=== PATIENT | female | born 2000 | race Caucasian/White ===

== ENCOUNTER 2020-07-12 20:34 | Emergency (ER) | payer OTHER, SELFPAY ==
[2020-07-12 20:43] VITALS: BP 135/77; PULSE 96; RESP 16; TEMP 37.4; O2SAT 100; BMI 31.9
[2020-07-12 23:32] LABS: Basophils Percent Auto 0.3 % (0-2); Eosinophils Absolute Auto 0.1 X10*3/uL (0.0-0.4); Eosinophils Percent Auto 1.1 % (0-4); Hematocrit 33.6 % (37-47); Hemoglobin 9.9 g/dl (12.0-16.0); Imm Gran Abs Auto 0.02 X10*3/uL (0.00-0.03); Imm Gran Pct Auto 0.2 % (0.0-0.4); Lymphocytes Absolute Auto 2.8 X10*3/uL (1.2-4.9); Lymphocytes Percent Auto 30.5 % (20-40); Mean Corpuscular HGB Conc 29.5 g/dl (31.0-35.0); Mean Corpuscular Hemoglobin 20.7 pg (27.0-33.0); Mean Corpuscular Volume 70.1 fL (80-98); Mean Platelet Volume 10.6 fL (9.4-12.3); Monocytes Absolute Auto 0.5 X10*3/uL (0.1-1.2); Monocytes Percent Auto 5.4 % (2-11); Neutrophils Absolute Auto 5.7 X10*3/uL (2.0-8.3); Neutrophils Percent Auto 62.5 % (45-73); Platelet Count 298 X10*3/uL (160-400); Red Blood Count 4.79 X10*6/uL (4.20-5.50); Red Cell Distribution Width 18.1 % (11.0-16.0); White Blood Count 9.1 X10*3/uL (4.8-10.8)
[2020-07-12 23:33] LABS: MANUAL DIFF FLAG NO
[2020-07-12 23:33] LABS: Glucose Urine UA NEG (NEG); Leukocyte Esterase Urine NEG (NEG); Nitrite Urine NEG (NEG); Specific Gravity - Urine >= 1.030 (1.005-1.025); Urine Blood NEG (NEG); Urine Ketones NEG (NEG); Urine Protein NEG (NEG-TRACE)
[2020-07-12 23:34] LABS: Appearance Urine CLEAR; Color Urine YELLOW
[2020-07-12 23:35] LABS: UPreg QC Valid YES; Urine Pregnancy POSITIVE (NEGATIVE)
[2020-07-13 00:05] LABS: Alanine Aminotransferase 30 U/L (0-31); Albumin Level 4.8 g/dL (3.5-5.0); Alkaline Phosphatase 64 U/L (39-117); Anion Gap 13 (12-20); Aspartate Amino Transferase 19 U/L (5-31); Bilirubin Total 0.4 mg/dL (0.0-1.0); Blood Urea Nitrogen 12 mg/dL (9-16); Calcium 9.6 mg/dL (8.4-10.2); Carbon Dioxide 21 mmol/L (22-29); Chloride 106 mmol/L (96-108); Estimated Glomerular Filt Rate > 60; Glucose Random 101 mg/dL (60-115); Potassium 3.7 mmol/l (3.3-5.1); Sodium 136 mmol/L (135-145); Total Protein 7.7 g/dL (6.5-8.0)
[2020-07-13 00:12] LABS: HCG Quantitative 784 mIU/mL
--- NOTE | 2020-07-13 00:23 | PC.NURSE ---
PT AWAITING ULTRASOUND. RESTING ON BED, SKIN PWD RESPIRATIONS EVEN UNLABORED. NO COMPLAINTS OFFERRED AT THIS TIME.
--- NOTE | 2020-07-13 00:26 | US_ITS ---
EXAMINATION: ULTRASOUND OB TRANSVAGINAL CLINICAL INFORMATION: Pelvic pain, reported quantitative beta hCG level 784 COMPARISON: None TECHNIQUE: Sonographic evaluation of the pelvis was performed transabdominally and transvaginally. FINDINGS: The uterus measures 9.1 cm in length and 6.0 x 6.6 cm in AP and transverse dimensions. No intrauterine gestational sac is seen at this time. There is trace fluid in the endometrial canal. The right ovary measures 5.0 x 3.2 x 3.1 cm. There are 2 complex appearing cystic structures in the right ovary measuring up to 2.0 cm and 2.2 cm in size. The left ovary measures 3.7 x 2.0 x 2.8 cm and appears unremarkable. Small amount of fluid is seen in the cul-de-sac and near the right adnexa. US/US OB <= 14 weeks fetus IMPRESSION: 1. No intrauterine is identified at this time, which could be due to an early stage of . Alternatively, lack of an intrauterine gestational sac may also be seen with missed or ectopic . Short-term sonographic follow-up and serial beta hCG levels are recommended to assess for development of a gestational sac. 2. Two complex-appearing structures in the right adnexa, which may reflect multiple corpus luteal cysts. 3. Small amount of free fluid in the cul-de-sac and near the right adnexa.
--- NOTE | 2020-07-13 00:26 | US_ITS ---
EXAMINATION: ULTRASOUND OB TRANSVAGINAL CLINICAL INFORMATION: Pelvic pain, reported quantitative beta hCG level 784 COMPARISON: None TECHNIQUE: Sonographic evaluation of the pelvis was performed transabdominally and transvaginally. FINDINGS: The uterus measures 9.1 cm in length and 6.0 x 6.6 cm in AP and transverse dimensions. No intrauterine gestational sac is seen at this time. There is trace fluid in the endometrial canal. The right ovary measures 5.0 x 3.2 x 3.1 cm. There are 2 complex appearing cystic structures in the right ovary measuring up to 2.0 cm and 2.2 cm in size. The left ovary measures 3.7 x 2.0 x 2.8 cm and appears unremarkable. Small amount of fluid is seen in the cul-de-sac and near the right adnexa. US/US OB transvaginal IMPRESSION: 1. No intrauterine is identified at this time, which could be due to an early stage of . Alternatively, lack of an intrauterine gestational sac may also be seen with missed or ectopic . Short-term sonographic follow-up and serial beta hCG levels are recommended to assess for development of a gestational sac. 2. Two complex-appearing structures in the right adnexa, which may reflect multiple corpus luteal cysts. 3. Small amount of free fluid in the cul-de-sac and near the right adnexa.
[2020-07-13 00:29] VITALS: BP 115/54; PULSE 80; RESP 14; TEMP 36.6; O2SAT 99
--- NOTE | 2020-07-13 00:38 | PC.NURSE ---
PT OFF FLOOR TO US.
--- NOTE | 2020-07-13 01:45 | PC.NURSE ---
RESULTS RECEIVED, PT AWAITING MD REEVAL .MD BRUNNER CONSULTING MD YA.
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
[2020-07-13 02:27] VITALS: BP 113/64; PULSE 74; RESP 16; TEMP 36.9; O2SAT 99
--- NOTE | 2020-07-13 02:29 | PC.NURSE ---
PT MOVED TO ROOM 14. AWAITING REPEAT CBC IN AM AND OB CONSULT. PT AWARE OF PLAN OF CARE. OFFERS NO COMPLAINTS AT THIS TIME. VSS.
[2020-07-13 04:00] VITALS: RESP 16
--- NOTE | 2020-07-13 04:17 | PC.NURSE ---
PT RESTING IN BED SKIN PWD RESPIRATIONS EVEN UNLABORED. NO DISTRESS NOTED, AWAITING CONSULT AND REPEAT LABS IN AM.
[2020-07-13 06:34] VITALS: BP 105/54; PULSE 86; RESP 16; O2SAT 100
[2020-07-13 07:10] LABS: Basophils Percent Auto 0.5 % (0-2); Eosinophils Absolute Auto 0.1 X10*3/uL (0.0-0.4); Eosinophils Percent Auto 0.9 % (0-4); Hematocrit 32.9 % (37-47); Hemoglobin 9.5 g/dl (12.0-16.0); Imm Gran Abs Auto 0.03 X10*3/uL (0.00-0.03); Imm Gran Pct Auto 0.4 % (0.0-0.4); Lymphocytes Absolute Auto 2.3 X10*3/uL (1.2-4.9); Lymphocytes Percent Auto 30.2 % (20-40); MANUAL DIFF FLAG NO; Mean Corpuscular HGB Conc 28.9 g/dl (31.0-35.0); Mean Corpuscular Hemoglobin 20.4 pg (27.0-33.0); Mean Corpuscular Volume 70.8 fL (80-98); Mean Platelet Volume 10.5 fL (9.4-12.3); Monocytes Absolute Auto 0.5 X10*3/uL (0.1-1.2); Monocytes Percent Auto 6.4 % (2-11); Neutrophils Absolute Auto 4.8 X10*3/uL (2.0-8.3); Neutrophils Percent Auto 61.6 % (45-73); Platelet Count 280 X10*3/uL (160-400); Red Blood Count 4.65 X10*6/uL (4.20-5.50); White Blood Count 7.7 X10*3/uL (4.8-10.8)
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
== END 2020-07-13 08:02 | disposition home or self-care (01) ==
PROVIDERS: Emergency Provider Emergency Medicine
DX: O26.891 Other specified pregnancy related conditions, first trimester (principal); N83.201 Unspecified ovarian cyst, right side
CPT/HCPCS: 36415; 76801; 76817; 80053; 81003; 81025; 84702; 85025; 86900; 86901; 99284

== ENCOUNTER 2020-07-15 13:12 | Outpatient (REF) | payer OTHER, SELFPAY ==
[2020-07-15 15:31] LABS: HCG Quantitative 2134 mIU/mL
== END 2020-07-15 13:13 | disposition home or self-care (01) ==
LOC: HO.LAB 13:12
PROVIDERS: Referring Provider Emergency Medicine; Visit Provider Emergency Medicine
DX: R10.9 Unspecified abdominal pain (principal)
CPT/HCPCS: 84702

== ENCOUNTER 2020-07-17 14:07 | Outpatient (REF) | payer OTHER, SELFPAY ==
--- NOTE | 2020-07-17 14:19 | US_ITS ---
EXAMINATION: PELVIC ULTRASOUND CLINICAL INFORMATION: Threatened COMPARISON: Previous exam 07/13/2020 TECHNIQUE: Transabdominal and transvaginal first trimester OB ultrasound. Transvaginal exam was performed for better visualization of the gestational sac and ovaries. FINDINGS: The uterus measures 11.3 x 5.2 x 6.4 cm in dimension. There is a new intrauterine gestational sac and yolk sac. Mean sac diameter measures 0.8 suggesting gestational age of 5 weeks 3 days. No pole is seen. There is a small hypoechoic area adjacent to the gestational sac questionable for subchorionic hemorrhage. This measures 1 x 1.4 x 0.2 cm. The cervix is normal. The right maternal ovary measures 4.4 x 3.3 x 2.4 cm. There are too thick walled complex cysts measuring 1.8 x 1.5 x 1.5 cm and 2.3 x 1.6 x 1.8 cm that are similar to previous exam. The left ovary is normal-appearing and measures 3.3 x 1.8 x 2.3 cm. There is a small amount of fluid in the pelvis. US/US OB <= 14 weeks fetus IMPRESSION: New intrauterine gestational sac and yolk sac. No pole seen. This may be due to early gestational age. Mean sac diameter suggests gestational age of 5 weeks 3 days. Small hypoechoic area adjacent to the gestational sac questionable for small subchorionic hemorrhage. Two complex thick-walled cysts in the right ovary and a small amount of fluid in the pelvis similar to previous exam.
--- NOTE | 2020-07-17 14:19 | US_ITS ---
EXAMINATION: PELVIC ULTRASOUND CLINICAL INFORMATION: Threatened COMPARISON: Previous exam 07/13/2020 TECHNIQUE: Transabdominal and transvaginal first trimester OB ultrasound. Transvaginal exam was performed for better visualization of the gestational sac and ovaries. FINDINGS: The uterus measures 11.3 x 5.2 x 6.4 cm in dimension. There is a new intrauterine gestational sac and yolk sac. Mean sac diameter measures 0.8 suggesting gestational age of 5 weeks 3 days. No pole is seen. There is a small hypoechoic area adjacent to the gestational sac questionable for subchorionic hemorrhage. This measures 1 x 1.4 x 0.2 cm. The cervix is normal. The right maternal ovary measures 4.4 x 3.3 x 2.4 cm. There are too thick walled complex cysts measuring 1.8 x 1.5 x 1.5 cm and 2.3 x 1.6 x 1.8 cm that are similar to previous exam. The left ovary is normal-appearing and measures 3.3 x 1.8 x 2.3 cm. There is a small amount of fluid in the pelvis. US/US OB transvaginal IMPRESSION: New intrauterine gestational sac and yolk sac. No pole seen. This may be due to early gestational age. Mean sac diameter suggests gestational age of 5 weeks 3 days. Small hypoechoic area adjacent to the gestational sac questionable for small subchorionic hemorrhage. Two complex thick-walled cysts in the right ovary and a small amount of fluid in the pelvis similar to previous exam.
[2020-07-17 16:42] LABS: HCG Quantitative 4783 mIU/mL
== END 2020-07-17 14:08 | disposition home or self-care (01) ==
LOC: HO.US 14:07
PROVIDERS: Referring Provider Obstetrics & Gynecology; Visit Provider Advanced Practice Midwife
DX: O20.0 Threatened abortion (principal); N83.299 Other ovarian cyst, unspecified side
CPT/HCPCS: 76801; 76817; 84702; 99212

== ENCOUNTER 2020-08-04 14:09 | Outpatient (REF) | payer OTHER, SELFPAY ==
--- NOTE | 2020-08-04 14:13 | US_ITS ---
EXAMINATION: OBSTETRICAL ULTRASOUND, FIRST TRIMESTER HISTORY: 20-year-old at the 8.3 weeks Threatened AB Viability LMP: 06/06/2020 COMPARISON: 07/17/2020 TECHNIQUE: Real time transabdominal imaging with color and M-mode Doppler. FINDINGS: A single, live IUP CRL of 17.1 mm c/w 8.2wks is noted. Heart Rate: 158 beats per minute. Both maternal ovaries are seen and appear normal. GESTATIONAL AGE: 1. GA from LMP: 8.3 wks 2. GA from AUA: 8.2 wks ESTIMATED DATE OF DELIVERY: 1. GELACIO from LMP: 03/13/2021 2. GELACIO from AUA: 03/14/2021 US/US OB <= 14 weeks fetus IMPRESSION: 1. A single live IUP 2. CRL is consistent with 8.2 weeks of gestation, confirming her GELACIO of 03/13/2021. 3. Normal ovaries Follow-up at approximately 12 weeks for NT evaluation is suggested. (Not scheduled). Thank you very much for this referral.
== END 2020-08-04 14:10 | disposition home or self-care (01) ==
LOC: HO.US 14:09
PROVIDERS: Visit Provider Obstetrics & Gynecology
DX: O20.0 Threatened abortion (principal); Z3A.08 8 weeks gestation of pregnancy
CPT/HCPCS: 76801

== ENCOUNTER 2020-08-29 14:08 | Outpatient (REF) | payer OTHER, SELFPAY | END 2020-08-29 14:09 | disposition home or self-care (01) | LOC: HO.LAB 14:08 | PROVIDERS: PCP Nurse Practitioner Family; Visit Provider Obstetrics & Gynecology | DX: Z13.89 Encounter for screening for other disorder (principal) | CPT/HCPCS: 99212 ==

== ENCOUNTER 2020-09-19 13:17 | Outpatient (REF) | payer OTHER, SELFPAY ==
[2020-09-19 18:41] LABS: Glucose 1 Hour PP 50gm Dose 103 mg/dL (60-140)
[2020-09-19 18:47] LABS: Alanine Aminotransferase 15 U/L (0-31); Aspartate Amino Transferase 10 U/L (5-31); Blood Urea Nitrogen 8 mg/dL (9-16); Estimated Glomerular Filt Rate > 60; Uric Acid 3.3 mg/dL (2.4-5.7)
[2020-09-20 09:49] LABS: BV Int Neg Control Negative (Negative); BV Int Pos Control Positive (Positive)
[2020-09-20 19:02] LABS: C. trachomatis RNA TMA NOT DETECTED (NOT DETECTED); N. gonorrhoeae RNA TMA NOT DETECTED (NOT DETECTED)
== END 2020-09-19 13:18 | disposition home or self-care (01) ==
LOC: HO.LAB 13:17
PROVIDERS: PCP Nurse Practitioner Family; Visit Provider Advanced Practice Midwife
DX: O34.219 Maternal care for unspecified type scar from previous cesarean delivery (principal); O99.340 Other mental disorders complicating pregnancy, unspecified trimester; F32.9 Major depressive disorder, single episode, unspecified; N89.8 Other specified noninflammatory disorders of vagina; M41.9 Scoliosis, unspecified
CPT/HCPCS: 36415; 81003; 82565; 84450; 84460; 84520; 84550; 87480; 87491; 87510; 87591; 87660; 99212

== ENCOUNTER 2020-09-29 13:36 | Outpatient (REF) | payer OTHER, SELFPAY ==
--- NOTE | ~2020-09-29 | US_ITS ---
EXAMINATION: US OBSTETRICAL CLINICAL INFORMATION: 20-year-old at 16.3 weeks of gestation Screening for malformation COMPARISON: 08/04/2020 TECHNIQUE: Real-time transabdominal ultrasound was performed using C1-5 megahertz transducer. FINDINGS: A single, active, fetus is seen in vertex presentation. The placenta is posterior without previa, and the amniotic fluid volume is wnl. MEASUREMENTS: 1. Biparietal Diameter: 3.3 cm; 16.2 wks 2. Occipital Frontal Diameter: 4.6 cm 3. Head Circumference: 12.6 cm; 16.3 wks 4. Abdominal Circumference: 9.7 cm; 15.6 wks 5. Femur Length: 2.1 cm; 16.1 wks 6. Humerus Length: 2.1 cm; 16.2 wks 7. Tibia Length: 1.9 cm; 16.4 wks 8. Ulna Length: 1.8 cm; 16.1 wks 9. Lateral ventricle: 0.6 cm 10. Cerebellum: 1.6 cm; 17.0 wks 11. Cisterna Magna: 0.32 cm 12. Nuchal Fold: 5.24 mm 13. Heart Rate: 143 beats per minute Rt ovary: normal Lt ovary: normal Cervical length 4.6 cm on T/A. GESTATIONAL AGE: 1. Established GA: 16.3 wks 2. GA from [facility]: 16.2 wks ESTIMATED DATE OF DELIVERY: 1. Established GELACIO: 03/13/2021 2. GELACIO from [facility]: 03/14/2021 ANATOMY: Anatomic survey was limited due to early gestational age. The views of the nasal bone, lip/palate, cardiac anatomy, spine, left hands were suboptimal. The visualized anatomy includes but not limited to: 1. Cranium: Normal 2. Intracranial anatomy: cavum septum pellucidi, lateral ventricles, choroid plexus, cerebellum, posterior fossa, third and fourth ventricles. 3. face: Nasal bone, lip, palate were suboptimal. Profile and orbits are within normal limits. 4. Heart: cardiac anatomy was suboptimally due to early gestational age. 5. Diaphragm: Normal 6. Abdominal wall: Normal 7. Cord Insertion: Normal 8. Spine: Suboptimal 9. Stomach: Normal size and shape 10. Right Kidney: Normal 11. Left Kidney: Normal 12. 3 vessel cord: Normal 13. Upper extremity: Left hand was suboptimally seen 14. Lower extremity: Tibia, fibula, bilateral feet. 15. Bladder: Normal 16. Genitalia: Male, patient not aware US/US OB /maternal detail IMPRESSION: 1. Single, living, intrauterine with appropriate biometry. 2. Limited survey due to early gestational age. However no abnormalities were seen in visualized anatomy. DISCUSSION: I reviewed today's ultrasound findings. We discussed the limitations of ultrasound in diagnosing aneuploidy and other congenital abnormalities. I reviewed the differences between screening test and diagnostic test. Amniocentesis was discussed and declined. She has not had the serum aneuploidy screening which was offered today. She accepted the N IPT. She was informed that the baseline incidence of congenital abnormalities is approximately 3-5%. Not all these conditions are diagnosable in utero. RECOMMENDATIONS: A follow-up in 3 weeks has been scheduled. Thank you for allowing me to participate in her care. Visiting time 20 minutes. Majority of this visit was spent reviewing and discussing her care.
== END 2020-09-29 13:37 | disposition home or self-care (01) ==
LOC: HO.US 13:36
PROVIDERS: Visit Provider Obstetrics & Gynecology
DX: Z34.90 Encounter for supervision of normal pregnancy, unspecified, unspecified trimester (principal); Z36.3 Encounter for antenatal screening for malformations; Z3A.16 16 weeks gestation of pregnancy
CPT/HCPCS: 76811

== ENCOUNTER 2020-10-17 14:38 | Outpatient (REF) | payer OTHER, SELFPAY ==
[2020-10-17 16:02] LABS: Hematocrit 30.8 % (37-47); Mean Corpuscular HGB Conc 29.2 g/dl (31.0-35.0); Mean Corpuscular Volume 68.3 fL (80-98); Platelet Count 208 X10*3/uL (160-400); Red Blood Count 4.51 X10*6/uL (4.20-5.50); Red Cell Distribution Width 19.5 % (11.0-16.0); White Blood Count 9.1 X10*3/uL (4.8-10.8)
[2020-10-17 16:06] LABS: PLT ABN DIST 1
== END 2020-10-17 14:39 | disposition home or self-care (01) ==
LOC: HO.LAB 14:38
PROVIDERS: PCP Nurse Practitioner Family; Visit Provider Advanced Practice Midwife
DX: O26.892 Other specified pregnancy related conditions, second trimester (principal); M41.9 Scoliosis, unspecified; O99.212 Obesity complicating pregnancy, second trimester; O99.342 Other mental disorders complicating pregnancy, second trimester; F41.8 Other specified anxiety disorders; O34.219 Maternal care for unspecified type scar from previous cesarean delivery; Z3A.21 21 weeks gestation of pregnancy
CPT/HCPCS: 36415; 85027; 87086; 99212

== ENCOUNTER 2020-10-20 13:33 | Outpatient (REF) | payer OTHER, SELFPAY ==
--- NOTE | ~2020-10-20 | US_ITS ---
EXAMINATION: US OBSTETRICAL CLINICAL INFORMATION: 20-year-old at 19.3 weeks of gestation High BMI COMPARISON: 09/29/2020 TECHNIQUE: Real-time transabdominal ultrasound was performed using C1-5 megahertz transducer. FINDINGS: A single, active, fetus is seen in vertex presentation. The placenta is posterior without previa, and the amniotic fluid volume is wnl. MEASUREMENTS: 1. Biparietal Diameter: 4.4 cm; 19.2 wks 2. Occipital Frontal Diameter: 6.2 cm 3. Head Circumference: 17.1 cm; 19.5 wks 4. Abdominal Circumference: 14.4 cm; 19.5 wks 5. Femur Length: 3.3 cm; 20.2 wks 6. Humerus Length: 3.0 cm; 20.1 wks 7. Tibia Length: 2.8 cm; 20.3 wks 8. Ulna Length: 2.6 cm; 19.3 wks 9. Lateral ventricle: 0.65 cm 10. Cerebellum: 1.95 cm; 20.0 wks 11. Cisterna Magna: 0.38 cm 12. Nuchal Fold: 5.98 mm 13. Heart Rate: 158 beats per minute Rt ovary: normal Lt ovary: normal Cervical length 5.4 cm on T/A. GESTATIONAL AGE: 1. Established GA: 19.3 wks [address] GA from [facility]: 19.6 wks ESTIMATED DATE OF DELIVERY: 1. Established GELACIO: 03/13/[address]IO [address] [facility]: 03/10/2021 ANATOMY: The visualized anatomy includes but not limited to: 1. Cranium: Normal 2. Intracranial anatomy: Bilateral choroid plexus cysts, cavum septum pellucidi, lateral ventricles, choroid plexus, cerebellum, posterior fossa, third and fourth ventricles. 3. face: orbits, lip/palate, profile, nasal bone 4. Heart: four-chamber view of the heart, ventricular septum, foramen ovale, pulmonary vein, left and right outflow tracts, three-vessel view, 3 vessel trachea view, aortic and ductal arches, situs.. 5. Diaphragm: Normal 6. Abdominal wall: Normal 7. Cord Insertion: Normal 8. Spine: Cervical, thoracic, lumbar, sacral. 9. Stomach: Normal size and shape 10. Right Kidney: Normal 11. Left Kidney: Normal 12. 3 vessel cord: Normal 13. Upper extremity: Open hands, fifth digit. 14. Lower extremity: Tibia, fibula, bilateral feet. 15. Bladder: Normal 16. Genitalia: Male, patient aware US/US OB /maternal detail IMPRESSION: 1. Single, living, intrauterine with appropriate biometry. 2. Bilateral choroid plexuses. Rest of the anatomy was within normal limits. DISCUSSION: Choroid plexus cysts are found in approximately 3% of normal fetuses. Its reported incidence is the between 10-20% fetuses with trisomy 18. In the absence of other sonographic abnormalities, the likelihood ratio of trisomy 18 is approximately 2. The cyst itself is benign and resolve spontaneously by third trimester and all fetuses. Aside from its association with trisomy 18, the clinical significance is unclear. Her NIPT showed low risk for trisomy 18, 21 and 13. In the setting of low risk and IPT, isolated choroid plexus cyst is considered a normal variant. We discussed the limitations of ultrasound in diagnosing aneuploidy and other congenital abnormalities. I reviewed the differences between screening test and diagnostic test. Amniocentesis was discussed and declined. She was informed that the baseline incidence of congenital abnormalities is approximately 3-5%. Not all these conditions are diagnosable in utero. RECOMMENDATIONS: 1. Additional follow-up has not been scheduled. Thank you for allowing me to participate in her care. Total time 30 minutes. The time spent was devoted to counseling the patient about the disease and diagnosis, coordinating care including reviewing her records, pertinent lab data and studies, as well as discussing diagnostic evaluation and workup, plan therapeutic interventions and future disposition of care. This includes any additional research needed to obtain further information in formulating the plan of care of this patient. This note was generated with a voice recognition program. Please excuse any errors which may have been overlooked during my review of this note. Sometimes these errors may affect the content or meaning of a given sentence.
== END 2020-10-20 13:34 | disposition home or self-care (01) ==
LOC: HO.US 13:33
PROVIDERS: Visit Provider Obstetrics & Gynecology
DX: O35.9XX0 Maternal care for (suspected) fetal abnormality and damage, unspecified, not applicable or unspecified (principal); Z3A.19 19 weeks gestation of pregnancy
CPT/HCPCS: 76811

== ENCOUNTER 2020-10-28 20:32 | Emergency (ER) | payer OTHER, SELFPAY ==
[2020-10-28 20:49] VITALS: BP 112/64; PULSE 88; RESP 16; TEMP 36.8; O2SAT 100; BMI 37.3
--- NOTE | 2020-10-28 21:22 | ED_ITS ---
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 Mode of arrival: ambulatory Limitations: no limitations History of Present Illness HPI narrative: 20 yo female 20 weeks took aspirin, flagyl, Fe tonight - notes that she developed dizzy, vomiting x 1, facial swelling at 630pm all symptoms resolved MD complaint: adverse reaction to drug Onset (ago): hour(s) (3) Radiation: non-radiation Severity: mild Quality: dull Relieving factors: none Exacerbating factors: medication Associated symptoms: denies other symptoms Treatments prior to arrival: none Related Data Home Medications Medication Instructions Recorded Confirmed prenat.vits,kiley,[id number] 1 tab PO DAILY 08/29/20 08/29/20 Previous Rx's Medication Instructions Recorded diphenhydramine HCl 25 mg capsule 25 mg PO Q6H PRN #30 cap 08/09/20 clotrimazole 1 % vaginal cream 1 appful VAGINAL BEDTIME #45 g 09/19/20 metronidazole 500 mg tablet 500 mg PO BID 7 Days #14 tab 09/21/20 aspirin 81 mg tablet,delayed 162 mg PO DAILY #60 tab 10/17/20 release ferrous sulfate 325 mg (65 mg 325 mg PO BID #30 tab 10/19/20 iron) tablet Allergies Allergy/AdvReac Type Severity Reaction Status Date / Time No Known Allergies Allergy Verified 10/17/20 14:54 Review of Systems Review of Systems: Constitutional :No Fever, No Chills ENT/Mouth : No sore throat, No Rhinorrhea Eyes: No Eye Pain, No Swelling, No Redness Cardiovascular : No Chest Pain, No SOB Respiratory : No Cough, No Sputum, No Wheezing Gastrointestinal : No Nausea, No Vomiting, No abdominal Pain Genitourinary : No Dysuria, No Urinary Frequency, No Hematuria, Musculoskeletal : No joint pain, No Myalgias, No Joint Swelling Skin : No Skin Lesions, No rash Neuro : No Weakness, No Numbness, No Dizziness, No Headache Psych : No Anxiety/Panic, No Depression PMFSH Past Medical History Medical History Scoliosis Surgical History History of Family History Family History Mother No problems noted. Father No problems noted. Maternal Grandfather No problems noted. Maternal Grandmother Hx of diabetes mellitus Paternal Grandfather No problems noted. Paternal Grandmother No problems noted. Sister No problems noted. Social History Social History Household Members: Family Alcohol intake: never Smoking Status: Never smoker Advance Directives: No Advance Directives Information Provided: Yes service: No Current occupational exposures/hazards: No Physical Exam Vital Signs: Vital Signs: Last Vital Signs Temp 98.3 F 10/28/20 20:49 Pulse 88 10/28/20 20:49 Resp 16 10/28/20 20:49 BP 112/64 10/28/20 20:49 Pulse Ox 100 10/28/20 20:49 Body Mass Index 37.3 Appearance: Alert. Oriented X3. No acute distress. Eyes: Pupils equal, round and reactive to light. ENT: Pharynx normal. no swelling Neck: Normal inspection. Neck supple. CVS: Normal heart rate and rhythm. Pulses normal. Respiratory: No respiratory distress. Breath sounds normal. Abdomen: Soft and nontender. Skin: Skin warm and dry. Normal skin color. Normal skin turgor. Extremities: No lower extremity edema. No calf ttp Neuro: Oriented X 3. No motor deficit. No sensory deficit. Medical Decision Making MDM Narrative Medical decision making narrative: 20 yo female 20 weeks no OB complaints came because at 630 developed facial swelling, was dizzy, vomited x 1 at 630pm after taking aspirin, Fe, flagyl - she has never taken aspirin before (preeclampsia prevention) but notes she has never had a reaction to the other two medications - all symptoms resolved, she wanted to be seen to discuss which one she could possibly react to, discussed since she has tolerated the others d uring both of her pregnancies and notes she has never taken aspirin, motrin, ibuprofen, aleve before that she should hold aspirin until she talks to her OB, she is completely asymptomatic now and wants to go home Discharge Plan Discharge Clinical Impression: Adverse reaction to aspirin Qualifiers: Encounter type: initial encounter Qualified Code(s): T39.015A - Adverse effect of aspirin, initial encounter Patient Disposition: Home, Self-Care Instructions: Adverse Drug Reaction (ED) Additional Instructions: return to ED for any worsening symptoms or concerns NO ASPIRIN UNTIL YOU SEE YOUR OBGYN Prescriptions: No Action metronidazole [Flagyl] 500 mg tablet 500 mg PO BID 7 Days Qty: 14 RF: 0 ferrous sulfate 325 mg (65 mg iron) tablet 325 mg PO BID Qty: 30 RF: 2 prenat.vits,kiley,[id number] Tablet 1 tab PO DAILY RF: 0 diphenhydramine HCl 25 mg capsule 25 mg PO Q6H PRN (Reason: nausea/vomiting) Qty: 30 RF: 0 clotrimazole 1 % cream 1 appful vaginal BEDTIME Qty: 45 RF: 3 aspirin [Adult Low Dose Aspirin] 81 mg tablet,delayed release (DR/EC) 162 mg PO DAILY Qty: 60 RF: 6 Print Language: Tamazight
== END 2020-10-28 21:31 | disposition home or self-care (01) ==
PROVIDERS: Emergency Provider Emergency Medicine
DX: O9A.212 Injury, poisoning and certain other consequences of external causes complicating pregnancy, second trimester (principal); T39.015A Adverse effect of aspirin, initial encounter; Z3A.20 20 weeks gestation of pregnancy; Y92.019 Unspecified place in single-family (private) house as the place of occurrence of the external cause
CPT/HCPCS: 99283

== ENCOUNTER 2020-12-20 10:38 | Outpatient (REF) | payer OTHER, SELFPAY ==
[2020-12-20 14:00] LABS: Hemoglobin 9.3 g/dl (12.0-16.0); NRBC Pct Auto 0.2 /100WBC (0.0-0.2)
[2020-12-20 14:01] LABS: Hematocrit 32.3 % (37-47); Mean Corpuscular HGB Conc 28.8 g/dl (31.0-35.0); Mean Corpuscular Hemoglobin 20.1 pg (27.0-33.0); Mean Corpuscular Volume 69.8 fL (80-98); Platelet Count 232 X10*3/uL (160-400); Red Blood Count 4.63 X10*6/uL (4.20-5.50); Red Cell Distribution Width 20.1 % (11.0-16.0); White Blood Count 11.1 X10*3/uL (4.8-10.8)
[2020-12-20 14:03] LABS: PLT ABN DIST 1
[2020-12-20 14:09] LABS: Glucose 1 Hour PP 50gm Dose 96 mg/dL (60-140)
[2020-12-29 17:07] LABS: CF Ethnicity NG; Cystic Fibrosis NEGATIVE (NEGATIVE)
== END 2020-12-20 10:39 | disposition home or self-care (01) ==
LOC: HO.LAB 10:38
PROVIDERS: Visit Provider Obstetrics & Gynecology
DX: O99.213 Obesity complicating pregnancy, third trimester (principal); O99.013 Anemia complicating pregnancy, third trimester; O35.0XX0 Maternal care for (suspected) central nervous system malformation in fetus, not applicable or unspecified; O34.219 Maternal care for unspecified type scar from previous cesarean delivery; Z3A.28 28 weeks gestation of pregnancy
CPT/HCPCS: 36415; 81220; 85027; 90471; 90715; 99212

== ENCOUNTER 2020-12-29 11:25 | Outpatient (REF) | payer OTHER, SELFPAY ==
--- NOTE | ~2020-12-29 | US_ITS ---
EXAMINATION: OBSTETRICAL ULTRASOUND, Follow up HISTORY: 20-year-old at the 29.3 weeks of gestation Size date discrepancy Choroid plexus cyst noted on survey COMPARISON: 10/20/2020 TECHNIQUE: Real time transabdominal imaging with color and M-mode Doppler. PRESENTATION: Vertex PLACENTA LOCATION: Posterior, no previa AMNIOTIC FLUID: Normal MEASUREMENTS: 1. Biparietal Diameter: 6.9 cm; 28.0 wks 2. Head Circumference: 28.4 cm; 31.2 wks 3. Abdominal Circumference: 26.6 cm; 30.6 wks 4. Femur Length: 5.8 cm; 30.3 wks 5. Heart Rate: 147 beats per minute WEIGHT: EFW: 1570 grams (3 lbs 7 oz) -- 73 %. Normal views of the following structures were seen: Lateral ventricles, posterior fossa, choroid plexus, four-chamber view, stomach, kidneys and bladder. The choroid plexus cyst noted on prior exam is no longer present. GESTATIONAL AGE: 1. Established GA: 29.3 wks 2. GA from [facility]: 30.1 wks ESTIMATED DATE OF DELIVERY: 1. Established GELACIO: 03/13/2021 2. GELACIO from [facility]: 03/08/2021 US/US OB follow up IMPRESSION: 1. A single active fetus is in vertex presentation 2. Size equals dates 3. LIVESTOCK YARD ATTENDANT resolved I reviewed today's ultrasound findings and informed her that the LIVESTOCK YARD ATTENDANT is no longer visible. However this isn't expected finding even in fetuses with trisomy 18. More reassuring fact is that the growth is appropriate. Majority of the fetuses with trisomy 18 are small for gestational age. Thank you very much for this referral. Total time 20 minutes. The time spent was devoted to counseling the patient about the disease and diagnosis, coordinating care including reviewing her records, pertinent lab data and studies, as well as discussing diagnostic evaluation and workup, plan therapeutic interventions and future disposition of care. This includes any additional research needed to obtain further information in formulating the plan of care of this patient. This note was generated with a voice recognition program. Please excuse any errors which may have been overlooked during my review of this note. Sometimes these errors may affect the content or meaning of a given sentence.
== END 2020-12-29 11:26 | disposition home or self-care (01) ==
LOC: HO.US 11:25
PROVIDERS: Visit Provider Obstetrics & Gynecology
DX: Z34.93 Encounter for supervision of normal pregnancy, unspecified, third trimester (principal)
CPT/HCPCS: 76816

== ENCOUNTER → 2021-01-03 11:39 | Outpatient (BNVA) | payer OTHER, SELFPAY | PROVIDERS: Visit Provider Obstetrics & Gynecology | DX: O34.219 Maternal care for unspecified type scar from previous cesarean delivery (principal); E66.9 Obesity, unspecified; Z3A.30 30 weeks gestation of pregnancy | CPT/HCPCS: 99212 ==

== ENCOUNTER 2021-01-04 16:43 | Emergency (ER) | payer OTHER, SELFPAY ==
[2021-01-04 16:56] VITALS: BP 128/62; PULSE 87; RESP 16; TEMP 36.3; O2SAT 100; BMI 39.9
--- NOTE | 2021-01-04 17:37 | ED_ITS ---
HPI - Headache General Chief Complaint: Headache Stated Complaint: HEADACHE - 7 MONTHS Time Seen by Provider: 01/04/21 17:37 Source: patient Mode of arrival: ambulatory Limitations: language barrier History of Present Illness HPI Narrative: headache with blurred vision. patient with frequent headaches she is 30 weeks . this is her third not taking her high blood pressure medicine. This headache today is 2 hours MD elicited complaint: headache Pertinent past history: hypertension Onset (ago): week(s) Onset description: gradually Location: frontal Severity: moderate Quality & Timing: aching Exacerbating factors: none Relieving factors: nothing Associated symptoms: nausea Related Data Home Medications Medication Instructions Recorded Confirmed prenat.vits,kiley,[id number] 1 tab PO DAILY 08/29/20 08/29/20 Previous Rx's Medication Instructions Recorded diphenhydramine HCl 25 mg capsule 25 mg PO Q6H PRN #30 cap 08/09/20 clotrimazole 1 % vaginal cream 1 appful VAGINAL BEDTIME #45 g 09/19/20 metronidazole 500 mg tablet 500 mg PO BID 7 Days #14 tab 09/21/20 aspirin 81 mg tablet,delayed 162 mg PO DAILY #60 tab 10/17/20 release ferrous sulfate 325 mg (65 mg 325 mg PO BID #30 tab 10/19/20 iron) tablet Allergies Allergy/AdvReac Type Severity Reaction Status Date / Time aspirin Allergy Intermediate Rash Verified 01/04/21 16:56 Review of Systems Constitutional: Constitutional: Reports no additional constitutional complaints Eyes: Eyes: Reports no additional eye complaints ENT: Denies dizziness Cardiovascular: Cardiovascular: Reports no additional cardiovascular complaints Respiratory: Respiratory: Reports as per HPI Gastrointestinal: Gastrointestinal: Reports no additional gastrointestinal complaints Genitourinary: Genitourinary: Reports no additional female genitourinary complaints Musculoskeletal: Musculoskeletal: Reports no additional musculoskeletal complaints Integumentary/Breasts: Skin/Breast: Denies rash Neurologic: Reports system reviewed and no additional complaints, except as documented, Denies dizziness and Denies Sensory deficit (Neuro) Psychiatric: Psychiatric: Denies anxiety PMFSH Past Medical History Medical History Scoliosis Surgical History History of Family History Family History Mother No problems noted. Father No problems noted. Maternal Grandfather No problems noted. Maternal Grandmother Hx of diabetes mellitus Paternal Grandfather No problems noted. Paternal Grandmother No problems noted. Sister No problems noted. Social History Social History Household Members: Family Alcohol intake: never Smoking Status: Never smoker Use of substances other than those prescribed or required for medical reasons: No Advance Directives: No Advance Directives Information Provided: Yes Patient : Yes service: No Current occupational exposures/hazards: No Physical Exam Vital Signs: Vital Signs: Last Vital Signs Temp 98.0 F 01/04/21 17:44 Pulse 99 01/04/21 17:44 Resp 21 H 01/04/21 17:44 BP 127/67 01/04/21 17:44 Pulse Ox 99 01/04/21 17:44 Body Mass Index 39.9 Const: Other: in no distress Nutritional Appearance: obese Orientation/consciousness: oriented to person and patient oriented x3 Limitations: no limitations HENMT: Head: Yes normal to inspection Ears: external ears normal General nose exam: Normal external nose present Mouth: Normal oral and palatal mucosa present and oropharynx normal Throat: Yes posterior oropharynx normal Eyes: General: appearance normal, both eyes and all related structures Neck: Other: supple Neck: Yes normal visual inspection Chest: Chest palpation & inspection: normal inspection of the chest Resp: Auscultation: clear to auscultation bilaterally Cardio: Jugular venous distension: no JVD Rate: regular rate Rhythm: regular rhythm Heart sounds: S1 normal heart sound present and S2 normal heart sound present GI: Other: obese gravid abdomen Auscultation: normal bowel sounds : General: Yes no CVA tenderness Back/Spine/Pelvis: Back: no CVA tenderness Skin: General skin exam: no rashes or lesions noted Neuro: General: oriented to person and patient oriented x3 Cranial nerves: Yes CN's II-XII intact bilaterally Motor exam (neuro): 5/5 motor strength present throughout Sensory Exam: No Sensory deficit (Neuro) Extrem: Other: no edema General: Yes normal to inspection Psych: Appearance: grossly normal Course Course Course Narrative: no evidence of eclampsia, FHT normal, headache improved will dc home MDM - Headache MDM Narrative Medical decision making narrative: considered preeclampsia but normal BP UA and CBC normal Differential Diagnosis Differential diagnosis: Likely tension headache Lab Data Result diagrams: 01/04/21 17:58 01/04/21 17:58 Labs: Lab Results 01/04/21 01/04/21 01/04/21 Range/Units 17:58 17:58 17:58 WBC 10.0 (4.8-10.8) X10*3/uL RBC 4.54 (4.20-5.50) X10*6/uL Hgb 9.1 L (12.0-16.0) g/dl Hct 31.5 L (37-47) % MCV 69.4 L (80-98) fL MCH 20.0 L (27.0-33.0) pg MCHC 28.9 L (31.0-35.0) g/dl RDW 20.2 H (11.0-16.0) % Plt Count 209 (160-400) X10*3/uL MPV Not Reportable Immature Gran % (Auto) 2.6 H (0.0-0.4) % Neut % (Auto) 74.0 H (45-73) % Lymph % (Auto) 17.6 L (20-40) % [place] % (Auto) 4.9 (2-11) % Eos % (Auto) 0.8 (0-4) % Baso % (Auto) 0.1 (0-2) % Lymph # (Auto) 1.8 (1.2-4.9) X10*3/uL [place] # (Auto) 0.5 (0.1-1.2) X10*3/uL Eos # (Auto) 0.1 (0.0-0.4) X10*3/uL Baso # (Auto) 0.0 (0.0-0.2) X10*3/uL Abs Immat Gran (auto) 0.26 H (0.00-0.03) X10*3/uL Absolute Neuts (auto) 7.4 (2.0-8.3) X10*3/uL Absolute Nucleated RBC 0.030 H (0.0-0.012) X10*3/uL Nucleated RBC % (auto) 0.3 H (0.0-0.2) /100WBC Smear Tech's Comments VERIFIED Hold Blue Top SEE NOTE Sodium 135 (135-145) mmol/L Potassium 3.6 (3.3-5.1) mmol/L Chloride 107 (96-108) mmol/L Carbon Dioxide 18 L (22-29) mmol/L Anion Gap 14 (12-20) BUN 7 L (9-16) mg/dL Creatinine 0.52 (0.5-1.4) mg/dL Estim Creat Clear Calc 211.7 Estimated GFR > 60 Random Glucose 112 (60-115) mg/dL Calcium 9.1 (8.4-10.2) mg/dL Urine Color Urine Appearance Urine pH (5.0-8.0) Ur Specific [place] (1.005-1.025) Urine Protein (NEG-TRACE) MG/DL Urine Glucose (UA) (NEG) MG/DL Urine Ketones (NEG) MG/DL Urine Blood (NEG) Urine Nitrite (NEG) Ur Leukocyte Esterase (NEG) 01/04/21 Range/Units 19:35 WBC (4.8-10.8) X10*3/uL RBC (4.20-5.50) X10*6/uL Hgb (12.0-16.0) g/dl Hct (37-47) % MCV (80-98) fL MCH (27.0-33.0) pg MCHC (31.0-35.0) g/dl RDW (11.0-16.0) % Plt Count (160-400) X10*3/uL MPV Immature Gran % (Auto) (0.0-0.4) % Neut % (Auto) (45-73) % Lymph % (Auto) (20-40) % [place] % (Auto) (2-11) % Eos % (Auto) (0-4) % Baso % (Auto) (0-2) % Lymph # (Auto) (1.2-4.9) X10*3/uL [place] # (Auto) (0.1-1.2) X10*3/uL Eos # (Auto) (0.0-0.4) X10*3/uL Baso # (Auto) (0.0-0.2) X10*3/uL Abs Immat Gran (auto) (0.00-0.03) X10*3/uL Absolute Neuts (auto) (2.0-8.3) X10*3/uL Absolute Nucleated RBC (0.0-0.012) X10*3/uL Nucleated RBC % (auto) (0.0-0.2) /100WBC Smear Tech's Comments Hold Blue Top Sodium (135-145) mmol/L Potassium (3.3-5.1) mmol/L Chloride (96-108) mmol/L Carbon Dioxide (22-29) mmol/L Anion Gap (12-20) BUN (9-16) mg/dL Creatinine (0.5-1.4) mg/dL Estim Creat Clear Calc Estimated GFR Random Glucose (60-115) mg/dL Calcium (8.4-10.2) mg/dL Urine Color YELLOW Urine Appearance HAZY Urine pH 6.0 (5.0-8.0) Ur Specific [place] >= 1.030 H (1.005-1.025) Urine Protein NEG (NEG-TRACE) MG/DL Urine Glucose (UA) 100 H (NEG) MG/DL Urine Ketones NEG (NEG) MG/DL Urine Blood NEG (NEG) Urine Nitrite NEG (NEG) Ur Leukocyte Esterase NEG (NEG) Discharge Plan Discharge Clinical Impression: Headache Qualifiers: Headache type: other headache syndrome Qualified Code(s): G44.89 - Other headache syndrome Patient Disposition: Home, Self-Care Instructions: Acute Headache (ED) Additional Instructions: May take 1 gram of tylenol four times a day for headache Prescriptions: No Action metronidazole [Flagyl] 500 mg tablet 500 mg PO BID 7 Days Qty: 14 RF: 0 ferrous sulfate 325 mg (65 mg iron) tablet 325 mg PO BID Qty: 30 RF: 2 prenat.vits,kiley,[id number] Tablet 1 tab PO DAILY RF: 0 diphenhydramine HCl 25 mg capsule 25 mg PO Q6H PRN (Reason: nausea/vomiting) Qty: 30 RF: 0 clotrimazole 1 % cream 1 appful vaginal BEDTIME Qty: 45 RF: 3 aspirin [Adult Low Dose Aspirin] 81 mg tablet,delayed release (DR/EC) 162 mg PO DAILY Qty: 60 RF: 6 Referrals: Physician,None [Primary Care Provider] - 2 days
[2021-01-04 17:44] VITALS: BP 127/67; PULSE 99; RESP 21; TEMP 36.7; O2SAT 99
[2021-01-04] MEDS: Acetaminophen 325 MG TABLET 975 MG PO (18:09)
[2021-01-04 18:32] LABS: MANUAL DIFF FLAG SCAN; NRBC Pct Auto 0.3 /100WBC (0.0-0.2); SCAN SMEAR FLAG 1
[2021-01-04 18:34] LABS: Basophils Percent Auto 0.1 % (0-2); Eosinophils Absolute Auto 0.1 X10*3/uL (0.0-0.4); Eosinophils Percent Auto 0.8 % (0-4); Hematocrit 31.5 % (37-47); Hemoglobin 9.1 g/dl (12.0-16.0); Imm Gran Abs Auto 0.26 X10*3/uL (0.00-0.03); Imm Gran Pct Auto 2.6 % (0.0-0.4); Lymphocytes Absolute Auto 1.8 X10*3/uL (1.2-4.9); Lymphocytes Percent Auto 17.6 % (20-40); Mean Corpuscular HGB Conc 28.9 g/dl (31.0-35.0); Mean Corpuscular Volume 69.4 fL (80-98); Monocytes Absolute Auto 0.5 X10*3/uL (0.1-1.2); Monocytes Percent Auto 4.9 % (2-11); Neutrophils Absolute Auto 7.4 X10*3/uL (2.0-8.3); Platelet Count 209 X10*3/uL (160-400); Red Blood Count 4.54 X10*6/uL (4.20-5.50); Red Cell Distribution Width 20.2 % (11.0-16.0)
[2021-01-04 18:36] LABS: PLT ABN DIST 1
[2021-01-04 18:38] LABS: Anion Gap 14 (12-20); Blood Urea Nitrogen 7 mg/dL (9-16); Calcium 9.1 mg/dL (8.4-10.2); Carbon Dioxide 18 mmol/L (22-29); Chloride 107 mmol/L (96-108); Creatinine Clr Calc Pharmacy 211.7; Estimated Glomerular Filt Rate > 60; Glucose Random 112 mg/dL (60-115); Potassium 3.6 mmol/L (3.3-5.1); SLIDE REVIEW VERIFIED; Sodium 135 mmol/L (135-145)
[2021-01-04 19:42] LABS: Glucose Urine UA 100 MG/DL (NEG); Leukocyte Esterase Urine NEG (NEG); Nitrite Urine NEG (NEG); Specific Gravity - Urine >= 1.030 (1.005-1.025); Urine Blood NEG (NEG); Urine Ketones NEG (NEG); Urine Protein NEG (NEG-TRACE)
[2021-01-04 19:43] LABS: Appearance Urine HAZY; Color Urine YELLOW
== END 2021-01-04 21:19 | disposition home or self-care (01) ==
PROVIDERS: Emergency Provider Emergency Medicine
DX: O26.893 Other specified pregnancy related conditions, third trimester (principal); G44.89 Other headache syndrome; O16.3 Unspecified maternal hypertension, third trimester; Z3A.30 30 weeks gestation of pregnancy; Z91.14 Patient's other noncompliance with medication regimen
CPT/HCPCS: 36415; 80048; 81003; 85025; 99283; 99284

== ENCOUNTER 2021-01-09 09:06 | Outpatient (REF) | payer OTHER, SELFPAY ==
[2021-01-09 10:54] LABS: Hematocrit 30.9 % (37-47); Hemoglobin 8.9 g/dl (12.0-16.0); Mean Corpuscular HGB Conc 28.8 g/dl (31.0-35.0); Mean Corpuscular Hemoglobin 19.7 pg (27.0-33.0); Mean Corpuscular Volume 68.5 fL (80-98); Mean Platelet Volume 10.6 fL (9.4-12.3); NRBC Pct Auto 0.3 /100WBC (0.0-0.2); Platelet Count 205 X10*3/uL (160-400); Red Blood Count 4.51 X10*6/uL (4.20-5.50); Red Cell Distribution Width 20.1 % (11.0-16.0); White Blood Count 9.7 X10*3/uL (4.8-10.8)
[2021-01-09 11:17] LABS: Alanine Aminotransferase 15 U/L (0-31); Aspartate Amino Transferase 12 U/L (5-31); Blood Urea Nitrogen 6 mg/dL (9-16)
[2021-01-09 11:47] LABS: Creatinine Urine 149.33 mg/dL; Protein/Creatinine Ratio, Ur 0.11 (<0.2); Total Protein Urine Random 16 mg/dL (<12)
== END 2021-01-09 09:07 | disposition home or self-care (01) ==
LOC: HO.LAB 09:06
PROVIDERS: Visit Provider Advanced Practice Midwife
DX: O26.893 Other specified pregnancy related conditions, third trimester (principal); R51.9 Headache, unspecified; R12 Heartburn
CPT/HCPCS: 36415; 81003; 84156; 84450; 84460; 84520; 85027; 99212

== ENCOUNTER → 2021-01-16 08:55 | Outpatient (BNVA) | payer OTHER, SELFPAY | PROVIDERS: Visit Provider Obstetrics & Gynecology | DX: O26.893 Other specified pregnancy related conditions, third trimester (principal); R51.9 Headache, unspecified; H53.8 Other visual disturbances; R60.9 Edema, unspecified; Z3A.32 32 weeks gestation of pregnancy | CPT/HCPCS: 59025; 99212 ==

== ENCOUNTER 2021-01-23 08:55 | Outpatient (REF) | payer OTHER, SELFPAY | END 2021-01-23 08:56 | disposition home or self-care (01) | LOC: HO.US 08:55 | PROVIDERS: Visit Provider Obstetrics & Gynecology | DX: O99.013 Anemia complicating pregnancy, third trimester (principal); O99.213 Obesity complicating pregnancy, third trimester; E66.9 Obesity, unspecified | CPT/HCPCS: 59025; 99212 ==

== ENCOUNTER 2021-01-23 09:56 | Outpatient (REF) | payer OTHER, SELFPAY ==
--- NOTE | ~2021-01-23 | US_ITS ---
EXAMINATION: US OBSTETRICAL (BIOPHYSICAL PROFILE) CLINICAL INFORMATION: Obesity. Gestational age from LMP is 33 weeks 0 days with estimated date of delivery of 03/13/2021 COMPARISON: Previous exams most recent 12/29/2020 TECHNIQUE: Ultrasound of the pelvis is performed. Biophysical profile is performed over 30 minutes with assessment of breathing, gross body movement, tone, and qualitative amniotic fluid volume. Each matrix is scored 0 or 2, depending if the metric is present. Maximum total score possible is 8. Examination is not intended to assess for anomalies. FINDINGS: POSITION: Cephalic PLACENTA: Posterior AMNIOTIC FLUID INDEX: 12.2 cm CARDIAC ACTIVITY: 158 beats per minute BIOPHYSICAL PROFILE: Motion: 2 Tone: 2 Breathin Amniotic Fluid: 2 Total score: 8 US/US OB biophysical profile IMPRESSION: 1. Single intrauterine gestation in cephalic position with posterior placenta. 2. Total biophysical score is 8 (scale 0-8). 3. Amniotic fluid index 12.2 cm. 4. cardiac activity 158 beats per minute.
== END 2021-01-23 09:57 | disposition home or self-care (01) ==
LOC: HO.US 09:56
PROVIDERS: Visit Provider Obstetrics & Gynecology
DX: O99.210 Obesity complicating pregnancy, unspecified trimester (principal); E66.9 Obesity, unspecified
CPT/HCPCS: 76819

== ENCOUNTER 2021-01-26 15:38 | Outpatient (REF) | payer OTHER, SELFPAY ==
--- NOTE | ~2021-01-26 | US_ITS ---
EXAMINATION: US OBSTETRICAL (BIOPHYSICAL PROFILE) CLINICAL INFORMATION: 20-year-old at 33.3 weeks of gestation High BMI COMPARISON: 01/23/2021 TECHNIQUE: Biophysical profile is performed over 30 minutes with assessment of breathing, gross body movement, tone, and qualitative amniotic fluid volume. FINDINGS: POSITION: Cephalic PLACENTA: Posterior without previa AMNIOTIC FLUID INDEX: 12.7 cm CARDIAC ACTIVITY: 153 beats per minute BIOPHYSICAL PROFILE: Motion: 2 Tone: 2 Breathin Amniotic Fluid: 2 The total biophysical score is 8/8 US/US OB biophysical profile IMPRESSION: 1. Single intrauterine gestation in vertex position. 2. Reassuring BPP and JUSTIN Thank you for allowing me to participate in her care. This note was generated with a voice recognition program. Please excuse any errors which may have been overlooked during my review of this note. Sometimes these errors may affect the content or meaning of a given sentence.
== END 2021-01-26 15:39 | disposition home or self-care (01) ==
LOC: HO.US 15:38
PROVIDERS: Visit Provider Obstetrics & Gynecology
DX: O99.213 Obesity complicating pregnancy, third trimester (principal); E66.9 Obesity, unspecified; Z3A.33 33 weeks gestation of pregnancy
CPT/HCPCS: 76819

== ENCOUNTER → 2021-01-30 09:08 | Outpatient (BNVA) | payer OTHER, SELFPAY | PROVIDERS: Visit Provider Obstetrics & Gynecology | DX: O99.013 Anemia complicating pregnancy, third trimester (principal); Z3A.34 34 weeks gestation of pregnancy | CPT/HCPCS: 59025; 99212 ==

== ENCOUNTER 2021-02-02 13:32 | Outpatient (REF) | payer OTHER, SELFPAY ==
--- NOTE | ~2021-02-02 | US_ITS ---
EXAMINATION: OBSTETRICAL ULTRASOUND, Follow up HISTORY: 20-year-old at the 34.3 weeks of gestation High BMI Size date discrepancy COMPARISON: 01/26/2021 TECHNIQUE: Real time transabdominal imaging with color and M-mode Doppler. PRESENTATION: Vertex PLACENTA LOCATION: Posterior without previa AMNIOTIC FLUID: JUSTIN 11.8 cm MEASUREMENTS: 1. Biparietal Diameter: 8.8 cm; 35.5 wks 2. Head Circumference: 30.1 cm; 33.3 wks 3. Abdominal Circumference: 29.5 cm; 33.4 wks 4. Femur Length: 6.9 cm; 35.4 wks 5. Heart Rate: 136 beats per minute WEIGHT: EFW: 2457 grams (5 lbs 7 oz) -- 48 %. BIOPHYSICAL PROFILE: Motion: 2 Tone: 2 Breathin Amniotic Fluid: 2 Total score: 8/8 GESTATIONAL AGE: 1. Established GA: 34.3 wks 2. GA from AUA: 34.4 wks ESTIMATED DATE OF DELIVERY: 1. Established GELACIO: 03/13/2021 2. GELACIO from AUA: 03/12/2021 US/US OB follow up IMPRESSION: 1. A single active fetus is in vertex presentation 2. Size equals dates, EFW corresponds to 48 percentile 3. Reassuring biophysical profile Thank you very much for this referral. This note was generated with a voice recognition program. Please excuse any errors which may have been overlooked during my review of this note. Sometimes these errors may affect the content or meaning of a given sentence.
== END 2021-02-02 13:33 | disposition home or self-care (01) ==
LOC: HO.US 13:32
PROVIDERS: Visit Provider Obstetrics & Gynecology
DX: O99.213 Obesity complicating pregnancy, third trimester (principal); E66.9 Obesity, unspecified; O26.843 Uterine size-date discrepancy, third trimester; Z3A.34 34 weeks gestation of pregnancy
CPT/HCPCS: 76816

== ENCOUNTER 2021-02-06 12:13 | Outpatient (REF) | payer OTHER, SELFPAY | END 2021-02-06 12:14 | disposition home or self-care (01) | LOC: HO.MDS 12:13 | PROVIDERS: Visit Provider Internal Medicine Medical Oncology | DX: D50.9 Iron deficiency anemia, unspecified (principal) | CPT/HCPCS: 96365; 96375; J1200; J2916 ==

== ENCOUNTER 2021-02-09 13:37 | Outpatient (REF) | payer OTHER, SELFPAY ==
--- NOTE | ~2021-02-09 | US_ITS ---
EXAMINATION: US OBSTETRICAL (BIOPHYSICAL PROFILE) CLINICAL INFORMATION: 20-year-old at 35.3 weeks of gestation High BMI COMPARISON: 02/02/2021 TECHNIQUE: Biophysical profile is performed over 30 minutes with assessment of breathing, gross body movement, tone, and qualitative amniotic fluid volume. FINDINGS: POSITION: Cephalic PLACENTA: Posterior without previa AMNIOTIC FLUID INDEX: 10.7 cm CARDIAC ACTIVITY: 146 beats per minute BIOPHYSICAL PROFILE: Motion: 2 Tone: 2 Breathin Amniotic Fluid: 2 The total biophysical score is 8/8 US/US OB biophysical profile IMPRESSION: 1. Single intrauterine gestation in vertex position. 2. Reassuring BPP and JUSTIN She is scheduled to return next week for the growth evaluation as well as BPP. Thank you for allowing me to participate in her care. This note was generated with a voice recognition program. Please excuse any errors which may have been overlooked during my review of this note. Sometimes these errors may affect the content or meaning of a given sentence.
== END 2021-02-09 13:38 | disposition home or self-care (01) ==
LOC: HO.US 13:37
PROVIDERS: Visit Provider Obstetrics & Gynecology
DX: O99.213 Obesity complicating pregnancy, third trimester (principal); E66.9 Obesity, unspecified; Z3A.35 35 weeks gestation of pregnancy
CPT/HCPCS: 76819

== ENCOUNTER → 2021-02-13 10:46 | Outpatient (BNVA) | payer OTHER, SELFPAY | PROVIDERS: Visit Provider Obstetrics & Gynecology | DX: O99.013 Anemia complicating pregnancy, third trimester (principal); Z3A.36 36 weeks gestation of pregnancy | CPT/HCPCS: 59025; 99212 ==

== ENCOUNTER 2021-02-16 13:24 | Outpatient (REF) | payer OTHER, SELFPAY ==
--- NOTE | ~2021-02-16 | US_ITS ---
EXAMINATION: OBSTETRICAL ULTRASOUND, Follow up HISTORY: 20-year-old at the 36.3 weeks of gestation High BMI Size date discrepancy COMPARISON: 02/09/2021 TECHNIQUE: Real time transabdominal imaging with color and M-mode Doppler. PRESENTATION: Vertex PLACENTA LOCATION: Posterior without previa AMNIOTIC FLUID: JUSTIN 12.6 cm MEASUREMENTS: 1. Biparietal Diameter: 8.9 cm; 35.6 wks 2. Head Circumference: 31.9 cm; 36.0 wks 3. Abdominal Circumference: 32.5 cm; 36.3 wks 4. Femur Length: 7.1 cm; 36.3 wks 5. Heart Rate: 156 beats per minute WEIGHT: EFW: 2897 grams (6 lbs 6 oz) -- 49 %. BIOPHYSICAL PROFILE: Motion: 2 Tone: 2 Breathin Amniotic Fluid: 2 Total score: 88 8/8 GESTATIONAL AGE: 1. Established GA: 36.3 wks 2. GA from AUA: 36.2 wks ESTIMATED DATE OF DELIVERY: 1. Established GELACIO: 03/13/2021 2. GELACIO from AUA: 03/14/2021 US/US OB follow up IMPRESSION: 1. A single active fetus is in vertex presentation 2. Size equals dates 3. Reassuring biophysical profile Thank you very much for this referral. This note was generated with a voice recognition program. Please excuse any errors which may have been overlooked during my review of this note. Sometimes these errors may affect the content or meaning of a given sentence.
== END 2021-02-16 13:25 | disposition home or self-care (01) ==
LOC: HO.US 13:24
PROVIDERS: Visit Provider Obstetrics & Gynecology
DX: E66.9 Obesity, unspecified (principal)
CPT/HCPCS: 76816

== ENCOUNTER 2021-02-20 11:25 | Outpatient (REF) | payer OTHER, SELFPAY ==
[2021-02-20 13:33] LABS: Basophils Percent Auto 0.4 % (0-2); MANUAL DIFF FLAG SCAN; Red Cell Distribution Width 22.7 % (11.0-16.0); SCAN SMEAR FLAG 1
[2021-02-20 13:35] LABS: Eosinophils Absolute Auto 0.1 X10*3/uL (0.0-0.4); Eosinophils Percent Auto 0.8 % (0-4); Hematocrit 33.1 % (37-47); Hemoglobin 9.4 g/dl (12.0-16.0); Imm Gran Abs Auto 0.48 X10*3/uL (0.00-0.03); Imm Gran Pct Auto 4.6 % (0.0-0.4); Lymphocytes Absolute Auto 1.5 X10*3/uL (1.2-4.9); Lymphocytes Percent Auto 14.6 % (20-40); Mean Corpuscular HGB Conc 28.4 g/dl (31.0-35.0); Mean Corpuscular Volume 70.6 fL (80-98); Mean Platelet Volume 10.6 fL (9.4-12.3); Monocytes Absolute Auto 0.7 X10*3/uL (0.1-1.2); Monocytes Percent Auto 6.6 % (2-11); NRBC Pct Auto 0.5 /100WBC (0.0-0.2); Neutrophils Absolute Auto 7.6 X10*3/uL (2.0-8.3); Platelet Count 213 X10*3/uL (160-400); Red Blood Count 4.69 X10*6/uL (4.20-5.50); White Blood Count 10.4 X10*3/uL (4.8-10.8)
[2021-02-20 13:42] LABS: PLT ABN DIST 1
[2021-02-20 14:16] LABS: SLIDE REVIEW VERIFIED
== END 2021-02-20 11:26 | disposition home or self-care (01) ==
LOC: HO.LAB 11:25
PROVIDERS: Visit Provider Obstetrics & Gynecology
DX: O99.013 Anemia complicating pregnancy, third trimester (principal); O36.8193 Decreased fetal movements, unspecified trimester, fetus 3; Z3A.37 37 weeks gestation of pregnancy
CPT/HCPCS: 36415; 59025; 81003; 85025; 87081; 99212

== ENCOUNTER 2021-02-23 13:38 | Outpatient (REF) | payer OTHER, SELFPAY ==
--- NOTE | ~2021-02-23 | US_ITS ---
EXAMINATION: US OBSTETRICAL (BIOPHYSICAL PROFILE) CLINICAL INFORMATION: 20-year-old at 37.3 weeks of gestation High BMI COMPARISON: 02/16/2021 TECHNIQUE: Biophysical profile is performed over 30 minutes with assessment of breathing, gross body movement, tone, and qualitative amniotic fluid volume. FINDINGS: POSITION: Vertex PLACENTA: Posterior without previa AMNIOTIC FLUID INDEX: 6.9 cm, D BELL CAPTAIN 5.3 cm CARDIAC ACTIVITY: 149 beats per minute BIOPHYSICAL PROFILE: Motion: 2 Tone: 2 Breathin Amniotic Fluid: 2 The total biophysical score is 6/8, -2 FB US/US OB biophysical profile IMPRESSION: 1. Single intrauterine gestation in vertex position. 2. BPP of 6/8. Advised her to have a nonstress test today and a repeat next Friday. She is to follow-up in one week for repeat testing and growth evaluation. Thank you for allowing me to participate in her care. Total time 20 minutes. The time spent was devoted to counseling the patient about the disease and diagnosis, coordinating care including reviewing her records, pertinent lab data and studies, as well as discussing diagnostic evaluation and workup, plan therapeutic interventions and future disposition of care. This includes any additional research needed to obtain further information in formulating the plan of care of this patient. This note was generated with a voice recognition program. Please excuse any errors which may have been overlooked during my review of this note. Sometimes these errors may affect the content or meaning of a given sentence.
== END 2021-02-23 13:39 | disposition home or self-care (01) ==
LOC: HO.US 13:38
PROVIDERS: Visit Provider Obstetrics & Gynecology
DX: O99.213 Obesity complicating pregnancy, third trimester (principal); E66.9 Obesity, unspecified; Z3A.37 37 weeks gestation of pregnancy
CPT/HCPCS: 59025; 76819; 99212

== ENCOUNTER → 2021-02-27 13:10 | Outpatient (BNVA) | payer OTHER, SELFPAY | PROVIDERS: Visit Provider Obstetrics & Gynecology | DX: O36.8130 Decreased fetal movements, third trimester, not applicable or unspecified (principal); Z3A.38 38 weeks gestation of pregnancy | CPT/HCPCS: 59025; 99212 ==

== ENCOUNTER 2021-03-02 14:35 | Outpatient (REF) | payer OTHER, SELFPAY ==
--- NOTE | ~2021-03-02 | US_ITS ---
EXAMINATION: US OBSTETRICAL (BIOPHYSICAL PROFILE) CLINICAL INFORMATION: 20-year-old at 38.3 weeks of gestation High BMI COMPARISON: 02/23/2021 TECHNIQUE: Biophysical profile is performed over 30 minutes with assessment of breathing, gross body movement, tone, and qualitative amniotic fluid volume. FINDINGS: POSITION: Vertex PLACENTA: Posterior without previa AMNIOTIC FLUID INDEX: 10.2 cm CARDIAC ACTIVITY: 143 beats per minute BIOPHYSICAL PROFILE: Motion: 2 Tone: 2 Breathin Amniotic Fluid: 2 The total biophysical score is 8/8 US/US OB biophysical profile IMPRESSION: 1. Single intrauterine gestation in vertex position. 2. Reassuring BPP and JUSTIN Suggest induction of labor between 39 and 40 weeks. Meanwhile, continue weekly NST until delivery. Thank you for allowing me to participate in her care. This note was generated with a voice recognition program. Please excuse any errors which may have been overlooked during my review of this note. Sometimes these errors may affect the content or meaning of a given sentence.
== END 2021-03-02 14:36 | disposition home or self-care (01) ==
LOC: HO.US 14:35
PROVIDERS: Visit Provider Obstetrics & Gynecology
DX: E66.9 Obesity, unspecified (principal)
CPT/HCPCS: 76819

== ENCOUNTER → 2021-03-06 14:23 | Outpatient (BNVA) | payer OTHER, SELFPAY | PROVIDERS: Visit Provider Advanced Practice Midwife | DX: O99.013 Anemia complicating pregnancy, third trimester (principal); O26.893 Other specified pregnancy related conditions, third trimester; M41.9 Scoliosis, unspecified; O99.213 Obesity complicating pregnancy, third trimester; O99.343 Other mental disorders complicating pregnancy, third trimester; F32.9 Major depressive disorder, single episode, unspecified; O34.219 Maternal care for unspecified type scar from previous cesarean delivery; Z3A.39 39 weeks gestation of pregnancy | CPT/HCPCS: 59025; 99212 ==

== ENCOUNTER 2021-03-09 11:57 | Outpatient (REF) | payer OTHER, SELFPAY ==
--- NOTE | ~2021-03-09 | US_ITS ---
EXAMINATION: US OBSTETRICAL (BIOPHYSICAL PROFILE) CLINICAL INFORMATION: 21-year-old at 39.3 weeks of gestation High BMI COMPARISON: 03/02/2021 TECHNIQUE: Biophysical profile is performed over 30 minutes with assessment of breathing, gross body movement, tone, and qualitative amniotic fluid volume. FINDINGS: POSITION: Cephalic PLACENTA: Posterior without previa AMNIOTIC FLUID INDEX: 8.2 cm CARDIAC ACTIVITY: 163 beats per minute BIOPHYSICAL PROFILE: Motion: 2 Tone: 2 Breathin Amniotic Fluid: 2 The total biophysical score is 8/8 US/US OB biophysical profile IMPRESSION: 1. Single intrauterine gestation in vertex position. 2. Reassuring BPP and JUSTIN Thank you for allowing me to participate in her care. This note was generated with a voice recognition program. Please excuse any errors which may have been overlooked during my review of this note. Sometimes these errors may affect the content or meaning of a given sentence.
== END 2021-03-09 11:58 | disposition home or self-care (01) ==
LOC: HO.US 11:57
PROVIDERS: Visit Provider Advanced Practice Midwife
DX: O99.213 Obesity complicating pregnancy, third trimester (principal); E66.9 Obesity, unspecified; O34.219 Maternal care for unspecified type scar from previous cesarean delivery
CPT/HCPCS: 76819

== ENCOUNTER → 2021-03-29 09:23 | Outpatient (BNVA) | payer OTHER, SELFPAY | PROVIDERS: Visit Provider Advanced Practice Midwife | DX: Z39.2 Encounter for routine postpartum follow-up (principal); Z39.1 Encounter for care and examination of lactating mother; O90.81 Anemia of the puerperium; O99.215 Obesity complicating the puerperium; E66.9 Obesity, unspecified | CPT/HCPCS: 99212 ==

== ENCOUNTER → 2021-04-26 13:20 | Outpatient (BNVA) | payer OTHER, SELFPAY | PROVIDERS: Visit Provider Advanced Practice Midwife | DX: Z39.2 Encounter for routine postpartum follow-up (principal); Z39.1 Encounter for care and examination of lactating mother; Z30.09 Encounter for other general counseling and advice on contraception | CPT/HCPCS: 99212 ==

== ENCOUNTER 2022-02-16 17:59 | Emergency (ER) | payer OTHER, SELFPAY ==
[2022-02-16 18:19] VITALS: BP 124/58; PULSE 92; RESP 18; TEMP 37.1; O2SAT 100; BMI 37.9
[2022-02-16 18:39] LABS: MANUAL DIFF FLAG NO
[2022-02-16 18:46] LABS: Basophils Percent Auto 0.2 % (0-2); Eosinophils Absolute Auto 0.1 X10*3/uL (0.0-0.4); Eosinophils Percent Auto 1.1 % (0-4); Hematocrit 35.8 % (37.0-47.0); Hemoglobin 10.9 g/dl (12.0-16.0); Imm Gran Abs Auto 0.02 X10*3/uL (0.00-0.03); Imm Gran Pct Auto 0.4 % (0.0-0.4); Lymphocytes Absolute Auto 1.3 X10*3/uL (1.2-4.9); Lymphocytes Percent Auto 24.1 % (20-40); Mean Corpuscular HGB Conc 30.4 g/dl (31.0-35.0); Mean Corpuscular Hemoglobin 22.3 pg (27.0-33.0); Mean Corpuscular Volume 73.4 fL (80.0-98.0); Mean Platelet Volume 10.8 fL (9.4-12.3); Monocytes Absolute Auto 0.4 X10*3/uL (0.1-1.2); Monocytes Percent Auto 6.5 % (2-11); Neutrophils Absolute Auto 3.6 x10*3/uL (2.0-8.3); Neutrophils Percent Auto 67.7 % (45-73); Platelet Count 251 X10*3/uL (160-400); Red Blood Count 4.88 X10*6/uL (4.20-5.50); Red Cell Distribution Width 16.7 % (11.0-16.0); White Blood Count 5.4 X10*3/uL (4.8-10.8)
[2022-02-16 18:58] LABS: Alanine Aminotransferase 24 U/L (0-31); Albumin Level 4.6 g/dL (3.5-5.0); Alkaline Phosphatase 64 U/L (39-117); Anion Gap 13 (12-20); Aspartate Amino Transferase 16 U/L (5-31); Bilirubin Direct 0.2 mg/dL (0.0-0.5); Bilirubin Total 0.5 mg/dL (0.0-1.0); Blood Urea Nitrogen 14 mg/dL (9-16); Calcium 9.7 mg/dL (8.4-10.2); Carbon Dioxide 22 mmol/L (22-29); Chloride 109 mmol/L (96-108); Creatinine Clr Calc Pharmacy 132.7; Estimated Glomerular Filt Rate > 60; Glucose Random 90 mg/dL (60-115); Sodium 140 mmol/L (135-145); Total Protein 7.8 g/dL (6.5-8.0)
[2022-02-16 18:59] LABS: COVID-19 Test Negative (Negative)
[2022-02-16 19:00] LABS: IDNOW Serial# 16C4AD1C
[2022-02-16 19:01] LABS: Influenza A Negative (Negative); Influenza B2 Negative (Negative)
[2022-02-16 22:18] LABS: Appearance Urine TURBID; Color Urine YELLOW; Glucose Urine UA NEG (NEG); Leukocyte Esterase Urine NEG (NEG); Nitrite Urine NEG (NEG); Specific Gravity - Urine >= 1.030 (1.005-1.025); Urine Blood NEG (NEG); Urine Ketones NEG (NEG); Urine Protein NEG (NEG-TRACE)
[2022-02-16 22:30] LABS: UPreg QC Valid YES; Urine Pregnancy NEGATIVE (NEGATIVE)
--- NOTE | 2022-02-16 23:00 | ED_ITS ---
HPI - Nausea/Vomiting/Diarrhea General Chief complaint: Nausea/Vomiting/Diarrhea Stated complaint: Fever/Diarrhea Time Seen by Provider: 02/16/22 22:47 Source: patient and certified court/medical interpreter Mode of arrival: ambulatory Limitations: no limitations History of Present Illness MD elicited complaint: diarrhea Onset (ago): day(s) (3) Description of diarrhea: watery Associated nausea: No Associated abdominal pain: No Severity: moderate Exacerbating factors: eating Relieving factors: none Context: [place] body aches and subjective fevers then diarrhea started friday no abx, no sick contact, no travel) Associated symptoms: denies other symptoms Related Data Previous Rx's Medication Instructions Recorded norethindrone (contraceptive) 0.35 0.35 mg PO DAILY #84 tabs 03/29/21 mg tablet loperamide 2 mg capsule (Imodium 2 mg PO Q4H PRN loose stool #14 02/16/22 A-D) caps Allergies Allergy/AdvReac Type Severity Reaction Status Date / Time aspirin Allergy Intermediate Rash Verified 04/26/21 13:23 Review of Systems Review of Systems: Constitutional : No Weight loss, No Fever, No Chills ENT/Mouth : No sore throat, No Rhinorrhea Eyes: No Swelling, No Redness Cardiovascular : No Chest Pain, No SOB, NoEdema Respiratory : No Cough, No Sputum, No Wheezing Gastrointestinal : no Nausea, noVomiting, positive Diarrhea, no abdominal Pain, No Hematochezia, No Melena Genitourinary : No Dysuria, No Urinary Frequency, No Hematuria, No Urgency Musculoskeletal : No joint pain, No Myalgias, No Joint Swelling Skin : No Skin Lesions, No rash Neuro : No Weakness, No Numbness, No Dizziness, No Headache Psych : No Anxiety/Panic, No Depression Heme/Lymph: No Bruising, No Lymphadenopathy Endocrine : No Polyuria, No Polydipsia All other systems reviewed and are negative. Gastrointestinal: Gastrointestinal: Denies nausea PMFSH Past Medical History Attestation statement: The following information was validated with the patient. Medical History Anemia affecting Scoliosis Surgical History History of Family History Family History Mother No problems noted. Father No problems noted. Maternal Grandfather No problems noted. Maternal Grandmother Hx of diabetes mellitus Paternal Grandfather No problems noted. Paternal Grandmother No problems noted. Sister No problems noted. Social History Social History Household Members: Family Alcohol intake: former Patient Tobacco Use Status: Never used Tobacco Advance Directives: No service: No Current occupational exposures/hazards: No Physical Exam Vital Signs: Vital Signs: Last Vital Signs Temp 98.8 F 02/16/22 18:19 Pulse 92 02/16/22 18:19 Resp 18 02/16/22 18:19 BP 124/58 L 02/16/22 18:19 Pulse Ox 100 02/16/22 18:19 O2 Del Method 02/16/22 18:19 BMI result Body Mass Index 37.9 Appearance: Alert. Oriented X3. No acute distress. Eyes: Pupils equal, round and reactive to light. ENT: Pharynx normal. Neck: Normal inspection. Neck supple. CVS: Normal heart rate and rhythm. Pulses normal. Respiratory: No respiratory distress. Breath sounds normal. Abdomen: Soft and non-tender. Skin: Skin warm and dry. Normal skin color. Normal skin turgor. Extremities: No lower extremity edema. No calf ttp Neuro: Oriented X 3. No motor deficit. No sensory deficit. MDM - Nausea/Vomiting/Diarrhea MDM Narrative Medical decision making narrative: 21 yo female with hx of anemia had fever on then body aches, now has had diarrhea since then. abdomen is benign labs are normal she has no risk factors for c diff - no exposures, [place]. given normal VS normal labs suspect self limiting disease in healthy patient. Will Rx lomotil. Has no fevers or blood stools x 24+ hours. Given precautions to return. Lab Data Result diagrams: 02/16/22 18:28 02/16/22 18:28 Labs: Lab Results 02/16/22 02/16/22 02/16/22 Range/Units 18:28 18:28 18:28 WBC 5.4 (4.8-10.8) X10*3/uL RBC 4.88 (4.20-5.50) X10*6/uL Hgb 10.9 L (12.0-16.0) g/dl Hct 35.8 L (37.0-47.0) % MCV 73.4 L (80.0-98.0) fL MCH 22.3 L (27.0-33.0) pg MCHC 30.4 L (31.0-35.0) g/dl RDW 16.7 H (11.0-16.0) % Plt Count 251 (160-400) X10*3/uL MPV 10.8 (9.4-12.3) fL Immature Gran % (Auto) 0.4 (0.0-0.4) % Neut % (Auto) 67.7 (45-73) % Lymph % (Auto) 24.1 (20-40) % Evans % (Auto) 6.5 (2-11) % Eos % (Auto) 1.1 (0-4) % Baso % (Auto) 0.2 (0-2) % Lymph # (Auto) 1.3 (1.2-4.9) X10*3/uL Evans # (Auto) 0.4 (0.1-1.2) X10*3/uL Eos # (Auto) 0.1 (0.0-0.4) X10*3/uL Baso # (Auto) 0.0 (0.0-0.2) X10*3/uL Abs Immat Gran (auto) 0.02 (0.00-0.03) X10*3/uL Absolute Neuts (auto) 3.6 (2.0-8.3) x10*3/uL Absolute Nucleated RBC 0.000 (0.0-0.012) X10*3/uL Nucleated RBC % (auto) 0.0 (0.0-0.2) /100WBC Sodium 140 (135-145) mmol/L Potassium 4.0 (3.3-5.1) mmol/L Chloride 109 H (96-108) mmol/L Carbon Dioxide 22 (22-29) mmol/L Anion Gap 13 (12-20) BUN 14 (9-16) mg/dL Creatinine 0.80 (0.5-1.4) mg/dL Estim Creat Clear Calc 132.7 Estimated GFR > 60 Random Glucose 90 (60-115) mg/dL Calcium 9.7 D (8.4-10.2) mg/dL Total Bilirubin 0.5 (0.0-1.0) mg/dL Direct Bilirubin 0.2 (0.0-0.5) mg/dL AST 16 D (5-31) U/L ALT 24 (0-31) U/L Alkaline Phosphatase 64 D (39-117) U/L Total Protein 7.8 (6.5-8.0) g/dL Albumin 4.6 D (3.5-5.0) g/dL Urine Color Urine Appearance Urine pH (5.0-8.0) Ur Specific [place] (1.005-1.025) Urine Protein (NEG-TRACE) MG/DL Urine Glucose (UA) (NEG) MG/DL Urine Ketones (NEG) MG/DL Urine Blood (NEG) Urine Nitrite (NEG) Ur Leukocyte Esterase (NEG) Urine Test (NEGATIVE) COVID-19 (PANKAJ) (Negative) COVID-19 Clin Com Influenza Type A (FELIPA) Negative (Negative) Influenza Type B (FELIPA) Negative (Negative) Influenza A & B Note See Note 02/16/22 02/16/22 02/16/22 Range/Units 18:28 22:03 22:03 WBC (4.8-10.8) X10*3/uL RBC (4.20-5.50) X10*6/uL Hgb (12.0-16.0) g/dl Hct (37.0-47.0) % MCV (80.0-98.0) fL MCH (27.0-33.0) pg MCHC (31.0-35.0) g/dl RDW (11.0-16.0) % Plt Count (160-400) X10*3/uL MPV (9.4-12.3) fL Immature Gran % (Auto) (0.0-0.4) % Neut % (Auto) (45-73) % Lymph % (Auto) (20-40) % Evans % (Auto) (2-11) % Eos % (Auto) (0-4) % Baso % (Auto) (0-2) % Lymph # (Auto) (1.2-4.9) X10*3/uL Evans # (Auto) (0.1-1.2) X10*3/uL Eos # (Auto) (0.0-0.4) X10*3/uL Baso # (Auto) (0.0-0.2) X10*3/uL Abs Immat Gran (auto) (0.00-0.03) X10*3/uL Absolute Neuts (auto) (2.0-8.3) x10*3/uL Absolute Nucleated RBC (0.0-0.012) X10*3/uL Nucleated RBC % (auto) (0.0-0.2) /100WBC Sodium (135-145) mmol/L Potassium (3.3-5.1) mmol/L Chloride (96-108) mmol/L Carbon Dioxide (22-29) mmol/L Anion Gap (12-20) BUN (9-16) mg/dL Creatinine (0.5-1.4) mg/dL Estim Creat Clear Calc Estimated GFR Random Glucose (60-115) mg/dL Calcium (8.4-10.2) mg/dL Total Bilirubin (0.0-1.0) mg/dL Direct Bilirubin (0.0-0.5) mg/dL AST (5-31) U/L ALT (0-31) U/L Alkaline Phosphatase (39-117) U/L Total Protein (6.5-8.0) g/dL Albumin (3.5-5.0) g/dL Urine Color YELLOW Urine Appearance TURBID Urine pH 6.0 (5.0-8.0) Ur Specific [place] >= 1.030 H (1.005-1.025) Urine Protein NEG (NEG-TRACE) MG/DL Urine Glucose (UA) NEG (NEG) MG/DL Urine Ketones NEG (NEG) MG/DL Urine Blood NEG (NEG) Urine Nitrite NEG (NEG) Ur Leukocyte Esterase NEG (NEG) Urine Test NEGATIVE (NEGATIVE) COVID-19 (PANKAJ) Negative (Negative) COVID-19 Clin Com See Note Influenza Type A (FELIPA) (Negative) Influenza Type B (FELIPA) (Negative) Influenza A & B Note Discharge Plan Discharge Clinical Impression: Diarrhea Qualifiers: Diarrhea type: presumed infectious Qualified Code(s): R19.7 - Diarrhea, unspecified Patient Disposition: Home, Self-Care Instructions: Acute Diarrhea (ED), Nutrition Tips for Relief of Diarrhea (ED) Additional Instructions: return to ED for any worsening symptoms or concerns sin l?cteos aletha 5 d?as, el yogur es xiao para ti regrese si tiene fiebre o joselyn en las heces, esto deber?a resolverse en los pr?ximos dos o bakari d?as. Prescriptions: New loperamide [Imodium A-D] 2 mg capsule 2 mg PO Q4H PRN (Reason: loose stool) Qty: 14 0RF Rx Instructions: administer after each loose stool until symptoms controlled; do not exceed 8 mg per 24 hrs No Action norethindrone (contraceptive) 0.35 mg tablet 0.35 mg PO DAILY Qty: 84 5RF Rx Instructions: start at 4w Print Language: Mohawk
[2022-02-16] MEDS: Diphenoxylate/Atrop 2.5/0.025 TABLET 1 TAB PO (23:29)
== END 2022-02-16 23:37 | disposition home or self-care (01) ==
PROVIDERS: Emergency Provider Emergency Medicine
DX: R50.9 Fever, unspecified (principal); R19.7 Diarrhea, unspecified; M79.10 Myalgia, unspecified site; Z20.822 Contact with and (suspected) exposure to COVID-19; Z79.899 Other long term (current) drug therapy
CPT/HCPCS: 80053; 81003; 81025; 82248; 85025; 87502; 87635; 99282; 99283

== ENCOUNTER → 2024-04-29 13:55 | Outpatient (RCR) | payer OTHER, SELFPAY ==
[2021-01-18 14:22] VITALS: BP 124/63; PULSE 88; RESP 12; TEMP 36.3; O2SAT 100; BMI 41.0
--- NOTE | 2021-01-18 14:27 | PM.HEMONCCN ---
Subjective - Subjective Chief complaint: Consult for iron deficiency anemia. In . Patient: new to practice Consult date: 01/18/21 Requesting Physician: Woo. Primary Care Provider: None. Medical Summary: DIAGNOSIS: IRON DEFICIENCY ANEMIA. IN THE 3RD TRIMESTER OF . HPI - Consult Narrative Reason for consult: Consult for: Iron deficiency anemia during . Narrative: Eric Marshall is a pleasant 20 year old lady, who is in her 3rd trimester of her 3rd . She has recently been noted to be anemic. On 01/09: WBCs 9.7, Hemoglobin was 8.9, HCT 30.9, MCV 68.5, PLT 205. Previous hemoglobin: 07/14: 9.9, 10/17: 9. 12/12: 9.5. 01/04: 9.1. ROS: She does feel a little bit tired. No fever nor chills. She has a good appetite. She has gained weight. She gets headaches occasionally. She has a bit of a chest pain at times. She denies shortness of breath. No abdominal pain nausea vomiting heartburn indigestion. Bowels are working without any gross blood in it. She enjoys a good appetite. Her weight is steadily going up. No dysuria or hematuria. She tells me her is progressing well. Denies any joint pains. Her legs hurt. She does feel rather depressed. No rashes nor pruritus. FAMILY HISTORY: Denies any history of malignancy nor hematological disorder in the family. SOCIAL HISTORY: She does not work. Previously she had a [employer] business. She is not . This is her 3rd . She denies smoking. Denies alcohol use. Review of Systems - Constitutional Reports system reviewed and no additional complaints, except as documented, Reports lack of energy, Reports weight gain - Eyes Reports system reviewed and no additional complaints, except as documented, Denies blurry vision - ENT Reports system reviewed and no additional complaints, except as documented - Cardiovascular Reports system reviewed and no additional complaints, except as documented, Reports chest pain, Denies chest pain at rest - Respiratory Reports no additional respiratory complaints, Denies chest congestion - Gastrointestinal Reports system reviewed and no additional complaints, except as documented, Reports nausea, Denies abdominal pain - Genitourinary Reports no additional female genitourinary complaints, Denies abnormal periods - Musculoskeletal Reports system reviewed and no additional complaints, except as documented, Denies back pain - Integumentary/Breasts Skin/Breast: Reports no additional skin complaints, Denies bleeding lesions - Neurologic Reports system reviewed and no additional complaints, except as documented - Psychiatric Reports system reviewed and no additional complaints, except as documented, Denies anxiety - Endocrine Reports no additional endocrine complaints, Denies excessive sweating - Hematologic/Lymphatic Reports system reviewed and no additional complaints, except as documented, Denies easy bruising - Allergic/Immunologic Reports system reviewed and no additional complaints, except as documented, Reports GI upset with certain foods Oncology Screenings - ECOG Performance Status ECOG Performance Status: 0 [facility] Medical History: Medical History (Last Reviewed 01/18/21 @ 14:23 by Natali Rojas) Anemia affecting Scoliosis Functional capacity: independent ambulation Patient : No Family History: Family History (Last Reviewed 01/18/21 @ 14:23 by Natali Rojas) Mother No problems noted. Father No problems noted. Maternal Grandfather No problems noted. Maternal Grandmother Hx of diabetes mellitus Paternal Grandfather No problems noted. Paternal Grandmother No problems noted. Sister No problems noted. Surgical History: Surgical History (Last Reviewed 01/18/21 @ 14:23 by Natali Rojas) History of Social History: Social History (Last Updated 01/18/21 @ 14:23 by Natali Rojas) Living Situation History: Household Members: Family Alcohol History: Alcohol intake: former Alcohol History Details: Alcohol intake frequency: does not drink Tobacco History: Patient Tobacco Use Status: Never used Tobacco Substance Use History: Use of substances other than those prescribed or required for medical reasons: No Nutrition Assessment: Patient : No Occupation Assessmet: service: No Current occupational exposures/hazards: No Home Medications and Allergies Home Medications Medication Instructions Recorded Confirmed Type prenat.vits,kiley,xrw-ddzi-booln 1 tab PO DAILY 08/29/20 01/18/21 History Allergies Allergy/AdvReac Type Severity Reaction Status Date / Time aspirin Allergy Intermediate Rash Verified 01/09/21 09:35 Physical Exam Vital signs: Vital Signs Temp 97.4 F 01/18/21 14:22 Pulse 88 01/18/21 14:22 Resp 12 01/18/21 14:22 BP 124/63 01/18/21 14:22 Pulse Ox 100 01/18/21 14:22 Intake & Output 01/17/21 01/18/21 01/18/21 18:59 06:59 18:59 Other: Weight 111.8 kg [place] Weight in Grams [id number] Weight 111.8 kg - Constitutional Present: no acute distress - Routine HEENT Exam Head: Present: normal inspection ENT: Present: mucous membranes moist - Routine Neck Exam Present: supple - Routine Respiratory Exam Present: CTAB - Routine Cardiovascular Exam Cardiovascular: Present: RRR, S1, S2 - Routine Extremities Exam Present: nontender - Routine Skin Exam Present: intact - Routine Neurological Exam Present: alert, oriented X3 - Detailed Neurological Exam: Coma Scale Eye Opening: Spontaneous (4) Verbal Response: Oriented (5) Motor Response: Obeys commands (6) Tuan Coma Scale Total: 15 - Routine Psychiatric Exam Present: normal affect Hem/Onc Consult Result - Labs CBC & Chem 7: 01/18/21 14:54 01/18/21 14:54 Assessment and Plan (1) Anemia affecting Status: Acute Qualifiers: Trimester: third trimester Qualified Code(s): O99.013 - Anemia complicating , third trimester This is a pleasant 20-year-old lady who is in her 3rd trimester of her 3rd . She has been noted to be anemic. Hemoglobin has been running between 8 and 9. She tells me that it was similar during her previous pregnancies as well. DIFFERENTIAL DIAGNOSIS: Most likely she has iron deficiency anemia. Iron studies revealed: 221/629/35/<1. She could have underlying iron malabsorption related to something like celiac disease. PLAN: I will check transgluteal IgA. Will set her for IV iron. Will give Ferrlecit weekly x 8, to bring her blood count prior to her delivery, which is in February. Will follow blood count monthly. She will return in 6 weeks for a follow-up visit. I wish her the best of luck with her delivery. Thank you, CC: Pallavi Berkowitz.
--- NOTE | 2021-01-18 14:53 | MHC.HEMONCMA ---
Pt present for consult on anemia. History reviewed and labs drawn. Will also, contact pt with date for ferelecit infusion.
[2021-01-18 14:57] LABS: MANUAL DIFF FLAG NO
[2021-01-18 15:03] LABS: Basophils Percent Auto 0.1 % (0-2); Eosinophils Absolute Auto 0.1 X10*3/uL (0.0-0.4); Eosinophils Percent Auto 0.6 % (0-4); Hematocrit 29.9 % (37-47); Hemoglobin 8.5 g/dl (12.0-16.0); Imm Gran Abs Auto 0.24 X10*3/uL (0.00-0.03); Imm Gran Pct Auto 2.4 % (0.0-0.4); Lymphocytes Absolute Auto 1.6 X10*3/uL (1.2-4.9); Lymphocytes Percent Auto 15.9 % (20-40); Mean Corpuscular HGB Conc 28.4 g/dl (31.0-35.0); Mean Corpuscular Hemoglobin 19.4 pg (27.0-33.0); Mean Corpuscular Volume 68.3 fL (80-98); Mean Platelet Volume 10.2 fL (9.4-12.3); Monocytes Absolute Auto 0.6 X10*3/uL (0.1-1.2); Monocytes Percent Auto 6.1 % (2-11); NRBC Pct Auto 0.5 /100WBC (0.0-0.2); Neutrophils Absolute Auto 7.6 X10*3/uL (2.0-8.3); Neutrophils Percent Auto 74.9 % (45-73); Platelet Count 204 X10*3/uL (160-400); Red Blood Count 4.38 X10*6/uL (4.20-5.50); Red Cell Distribution Width 20.2 % (11.0-16.0); White Blood Count 10.2 X10*3/uL (4.8-10.8)
[2021-01-18 15:24] LABS: Alanine Aminotransferase 13 U/L (0-31); Albumin Level 3.8 g/dL (3.5-5.0); Alkaline Phosphatase 101 U/L (39-117); Anion Gap 13 (12-20); Aspartate Amino Transferase 10 U/L (5-31); Bilirubin Total 0.4 mg/dL (0.0-1.0); Blood Urea Nitrogen 6 mg/dL (9-16); Carbon Dioxide 19 mmol/L (22-29); Chloride 108 mmol/L (96-108); Creatinine Clr Calc Pharmacy 210.9; Estimated Glomerular Filt Rate > 60; Glucose Random 71 mg/dL (60-115); Iron 221 mcg/dL (30-160); Percent Iron Saturation 35 % (15-50); Sodium 136 mmol/L (135-145); Total Iron Binding Capacity 629 mcg/dL (228-428); Total Protein 6.7 g/dL (6.5-8.0); Unsaturated Iron Binding 408 ug/dL
[2021-01-18 15:48] LABS: Ferritin < 1 ng/mL (10-122)
[2021-01-19 13:17] LABS: Transglutaminase IgA 1 U/mL
== END | disposition home or self-care (01) ==
LOC: HO.ONC 01-18 14:02
PROVIDERS: Referring Provider Advanced Practice Midwife; Visit Provider Internal Medicine Medical Oncology
DX: O99.013 Anemia complicating pregnancy, third trimester (principal); D50.9 Iron deficiency anemia, unspecified; Z3A.00 Weeks of gestation of pregnancy not specified
CPT/HCPCS: 36415; 80053; 82728; 83516; 83540; 85025; 99204